=== PATIENT | male | born 1955 | race Caucasian/White ===

== ENCOUNTER → 2020-03-05 | Outpatient (CLI) | payer MEDICARE, OTHER ==
[~2020-03-05] MED LIST: ATORVASTATIN PO; BENAZEPRIL PO; NORCO 325 MG-51 TAB PO; VALIUM5 MG PO
== END ==
LOC: COL.RAD 08:59 → EDSEX 09:00 → COL.RAD 09:00
DX: Z01.812 Encounter for preprocedural laboratory examination (principal); M48.061 Spinal stenosis, lumbar region without neurogenic claudication; M43.16 Spondylolisthesis, lumbar region; Z98.1 Arthrodesis status
CPT/HCPCS: A9585